=== PATIENT | female | born 1955 | race Caucasian/White ===

== ENCOUNTER 2018-02-01 08:31 | Day surgery (SDC) | payer BC ==
[~2018-02-01 08:31] MED LIST: LACTATED RINGER'S 1,000 ML IV; LIDOCAINE 2% (SDV) 5 ML INJ; PROPOFOL 200 MG INJ
[2018-02-01] MEDS: TETRACAINE 0.5% 4 ML OPH OPER (09:49)
[2018-02-01] MEDS: BROMFENAC SODIUM 1.7 ML OPH DROP OPER (09:49)
[2018-02-01] MEDS: LIDOCAINE 3.5% GEL TUBE OPER (09:50)
[2018-02-01 10:45] LABS: INR 0.88; PT RATIO 0.9
[2018-02-01 11:00] LABS: PARTIAL THROMBOPLASTIN TIME 23.4 Sec (25.0-35.0)
[2018-02-01] MEDS ORDERED: FENTAnyl 50 MCG/ML VIAL (11:10)
[2018-02-01] MEDS ORDERED: CEFAZOLIN 1 GM INJ (11:30)
[2018-02-01] MEDS ORDERED: METOCLOPRAMIDE 10 MG INJ IV (12:30)
[2018-02-01] MEDS ORDERED: HYDROmorphONE (0.2 MG/ML) 10ML SYG IV (12:30)
[2018-02-01] MEDS ORDERED: MEPERIDINE 25 MG INJ IV (12:30)
[2018-02-01] MEDS ORDERED: DIPHENHYDRAMINE 50 MG INJ IV (12:30)
[2018-02-01] MEDS: LIDOCAINE 1%/EPI 30 ML INJ INJ (12:43)
[2018-02-01] MEDS: TOBRAMYCIN/DEXAMETH 3.5 GM OPH OINT (12:43)
[2018-02-01] MEDS: ONDANSETRON 4 MG INJ IV (13:05)
[2018-02-01] MEDS: FENTAnyl 50 MCG/ML VIAL IV (13:05)
[2018-02-01] MEDS: HYDROCODONE/APAP (5/325) TAB PO (14:42)
== END 2018-02-01 14:46 | disposition home or self-care (01) ==
LOC: SDS 08:31
DX: H02.34 Blepharochalasis left upper eyelid (principal); H02.31 Blepharochalasis right upper eyelid; E66.9 Obesity, unspecified; Z68.34 Body mass index [BMI] 34.0-34.9, adult
CPT/HCPCS: 15822; 85610; 85730